=== PATIENT | male | born 1980 | race American Indian/Alaskan Native ===

== ENCOUNTER 2021-04-16 05:23 | Emergency (ER) | payer MEDICAID ==
[2021-04-16] MEDS ORDERED: HYDROmorphone 1 MG/1 ML INJ IM ONE (06:36)
[2021-04-16] MEDS ORDERED: KETOROLAC 30 MG/1 ML INJ IM ONE (06:36)
--- NOTE | 2021-04-16 06:36 | Emergency Department Report ---
ED General Adult HPI - General Chief complaint: Earache Stated complaint: JAW/GUM PAIN/POST DENTAL PROCEDURE PUI?: No Time Seen by Provider: 04/16/21 06:11 Source: patient, RN notes reviewed Mode of arrival: Ambulatory Limitations: No Limitations - History of Present Illness Initial comments: Patient is a pleasant 40-year-old gentleman with no known past medical history, who presents to the ER today with a complaint of nontraumatic left-sided upper maxillary dental pain, on tooth #15, 16. He had a filling placed a few days ago. He has throbbing pain over the aforementioned teeth, which involves his left face and jaw. He denies headache, midline neck pain, chest pain, abdominal pain, shortness of breath, Covid symptomatology. He does not have a history of high blood pressure that he is aware of. The patient denies fever, stridor, inability to speak, inability to breathe. Dental pain increases with chewing, swallowing, and exposure to heat and cold. -: Gradual, hour(s) Location: mouth Radiation: other (Left face) Severity scale (0 -10): 10 Consistency: constant Improves with: rest Worsens with: eating - Related Data Previous Rx's Medication Instructions Recorded Last Taken Type Acetaminophen [Non-Aspirin Extra 500 mg PO Q6HR PRN #30 tablet 04/16/21 Unknown Rx Strength] Ibuprofen [Motrin] 600 mg PO Q8H PRN #30 tablet 04/16/21 Unknown Rx Morphine Sulfate [Morphine Sulfate 7.5 mg PO Q6HR PRN #10 tablet 04/16/21 Unknown Rx IR] Allergies Allergy/AdvReac Type Severity Reaction Status Date / Time ciprofloxacin [From Cipro] Allergy Unknown Verified 04/16/21 05:27 ED Review of Systems ROS: Stated complaint: JAW/GUM PAIN/POST DENTAL PROCEDURE Other details as noted in HPI Constitutional: denies: fever Eyes: denies: eye discharge ENT: ear pain, dental pain. denies: throat pain, epistaxis Respiratory: denies: cough Cardiovascular: denies: chest pain Musculoskeletal: denies: back pain Neurological: denies: weakness Psychiatric: anxiety ED Past Medical Hx - Past Medical History Previous Medical History?: No - Surgical History Past Surgical History?: No - Social History Smoking Status: Never Smoker Substance Use Type: None - Medications Home Medications: Home Medications Medication Instructions Recorded Confirmed Last Taken Type Acetaminophen [Non-Aspirin Extra 500 mg PO Q6HR PRN #30 tablet 04/16/21 Unknown Rx Strength] Ibuprofen [Motrin] 600 mg PO Q8H PRN #30 tablet 04/16/21 Unknown Rx Morphine Sulfate [Morphine Sulfate 7.5 mg PO Q6HR PRN #10 tablet 04/16/21 Unknown Rx IR] ED Physical Exam - General Limitations: No Limitations General appearance: alert, anxious, obese - Head Head exam: Present: atraumatic, normocephalic - Eye Eye exam: Present: normal appearance, EOMI. Absent: nystagmus - ENT ENT exam: Present: normal exam (The trachea is midline. The neck is supple and soft.), normal orophraynx, mucous membranes moist, TM's normal bilaterally, normal external ear exam, other (There is no stridor, there is no trismus, there is no dysphonia. There is no gingival abscess, or periapical abscess. Tooth #16 is tender to percussion.) - Neck Neck exam: Present: normal inspection, full ROM. Absent: tenderness, meningismus - Respiratory Respiratory exam: Present: normal lung sounds bilaterally. Absent: respiratory distress, wheezes, rales, rhonchi, stridor, decreased breath sounds - Cardiovascular Cardiovascular Exam: Present: regular rate, normal rhythm, normal heart sounds. Absent: bradycardia, tachycardia, irregular rhythm, systolic murmur, diastolic murmur, rubs, gallop - GI/Abdominal GI/Abdominal exam: Present: soft. Absent: distended, tenderness, guarding, rebound, rigid, pulsatile mass - Rectal Rectal exam: Present: deferred - Extremities Exam Extremities exam: Present: normal inspection, full ROM, other (2+ pulses noted in the bilateral upper and lower extremities. There is no palpable cord. negative Homans sign. Muscular compartments are soft. The pelvis is stable.). Absent: pedal edema, calf tenderness - Back Exam Back exam: Present: normal inspection, full ROM. Absent: tenderness, CVA tenderness (R), CVA tenderness (L), paraspinal tenderness, vertebral tenderness - Neurological Exam Neurological exam: Present: alert, oriented X3, normal gait, other (No facial droop. Tongue midline. Extraocular movements intact bilaterally. Facial sensation intact to light touch in V1, V2, V3 distribution bilaterally. 5 and a 5 strength in 4 extremities. Sensation intact to light touch in 4 extremities.). Absent: motor sensory deficit - Psychiatric Psychiatric exam: Present: anxious - Skin Skin exam: Present: warm, dry, intact, normal color. Absent: rash ED Course Vital Signs 04/16/21 04/16/21 04/16/21 05:30 05:32 05:41 Temperature 99.0 F Pulse Rate 90 81 Respiratory 20 18 Rate Blood Pressure 209/125 Blood Pressure 166/93 [Right] O2 Sat by Pulse 97 99 Oximetry 04/16/21 04/16/21 06:00 06:30 Temperature Pulse Rate Respiratory Rate Blood Pressure 166/93 154/83 Blood Pressure [Right] O2 Sat by Pulse 97 99 Oximetry ED Medical Decision Making - Lab Data Vital Signs 04/16/21 04/16/21 04/16/21 05:30 05:32 05:41 Temperature 99.0 F Pulse Rate 90 81 Respiratory 20 18 Rate Blood Pressure 209/125 Blood Pressure 166/93 [Right] O2 Sat by Pulse 97 99 Oximetry - Medical Decision Making Differential diagnosis, including but not limited to: Dentalgia, post dental filling pain, elevated blood pressure, encounter for medical screening examination Assessment and plan: 40-year-old gentleman, who presents with dentalgia and dental pain, after having a filling placed in tooth #15/16. He is afebrile with reassuring vital signs, with exception of elevated blood pressure, which has improved. The patient states he does not have a history of high blood pressure. I suspect his elevated blood pressure secondary to pain. The patient is not acutely decompensated otherwise, and denies systemic medical complaints. Please reference the [employer] clinical policy on asymptomatic hypertension/elevated blood pressure. The patient has no stridor, dysphonia, he has no elevation of the base of the tongue, he is protecting his airway, the neck is supple and soft, and the trachea is midline. He will be treated acutely with pain medication, and he states he will follow-up with his dentist later on today. He states he will follow up with his primary care doctor for his elevated blood pressure. He has articulated understanding to the discharge instructions. All questions answered. Return precautions are reviewed. Critical care attestation.: If time is entered above; I have spent that time in minutes in the direct care of this critically ill patient, excluding procedure time. ED Disposition Clinical Impression: Dentalgia, Elevated blood pressure reading Disposition: DC-01 TO HOME OR SELFCARE Is pt being admited?: No Does the pt Need Aspirin: No Condition: Stable Additional Instructions: Please take the pain medication as needed and directed. If taking the morphine sulfate for pain, do not drive, consume alcohol, make important decisions. Also, do not operate motor vehicles. Please follow-up with your dentist as soon as possible. Please follow-up with your primary care doctor within the next month for blood pressure recheck. Patient was found to have elevated blood pressure while here in the emergency room, but this is likely secondary to pain, likely secondary to acute dentalgia. Advance diet as tolerated, and please return to the emergency room right away with new pain, worsened pain, migration of pain, inability to speak, inability to breathe, new, worsened or different symptoms not present on the initial emergency room evaluation. Prescriptions: Morphine Sulfate [Morphine Sulfate IR] 7.5 mg PO Q6HR PRN #10 tablet PRN Reason: Pain , Severe (7-10) Ibuprofen [Motrin] 600 mg PO Q8H PRN #30 tablet PRN Reason: Pain Acetaminophen [Non-Aspirin Extra Strength] 500 mg PO Q6HR PRN #30 tablet PRN Reason: Pain , Severe (7-10) Referrals: [facility] [Outside] - 3-5 Days [facility] [Provider Group] - 3-5 Days
[2021-04-16 06:51] VITALS: BP 154/83
[2021-04-16] MEDS ORDERED: propofoL 200 MG/20 ML VIAL IV ONE (12:36)
[2021-04-16] MEDS ORDERED: PHENYLEPHRINE 10 MG/1 ML INJ SDV ONE (12:50)
== END 2021-04-16 06:49 | disposition home or self-care (01) ==
LOC: ED 05:23
DX: K08.89 Other specified disorders of teeth and supporting structures (principal); R03.0 Elevated blood-pressure reading, without diagnosis of hypertension; Z79.1 Long term (current) use of non-steroidal anti-inflammatories (NSAID); Z79.899 Other long term (current) drug therapy; Z88.8 Allergy status to other drugs, medicaments and biological substances
CPT/HCPCS: 96372; 99282; J1170; J1885; J2370; J2704

== ENCOUNTER 2021-05-13 05:02 | Emergency (ER) | payer MEDICAID ==
[2021-05-13] MEDS ORDERED: PENICILLIN G BENZATHINE 1.2 MILLION UNIT/2 ML INJ IM ONE (09:11)
[2021-05-13] MEDS ORDERED: HYDROcodone/ACETAMINOPHEN 5-325 MG TAB PO ONE (09:12)
[2021-05-13] MEDS ORDERED: IBUPROFEN 800 MG TAB PO ONE (09:12)
--- NOTE | 2021-05-13 09:14 | Emergency Department Report ---
ED ENT HPI - General Chief complaint: Dental/Oral Stated complaint: PAIN IN JAW FACE TOOTH Time Seen by Provider: 05/13/21 09:02 Source: patient Mode of arrival: Ambulatory Limitations: No Limitations - History of Present Illness Initial comments: 41 YO AA COMES TO ER WITH DENTAL PAIN OF TOOTH NO 17. HAS DMD APPNT BUT THE PAIN WAS SO SEVER HE CAME TO ER. TOOK [employer]. NO TRIMSUS. NO ABSCESS. TAKING PO WO DIFFICULTY NO HX HTN NON ILL APPEARING ON ARRIVAL TO [facility] MD complaint: tooth pain -: Gradual, week(s) Severity: moderate Quality: aching Consistency: constant Improves with: none Worsens with: none Associated Symptoms: toothache. denies: fever, cough, gum swelling, pain with swallowing, sore throat, tinnitus, hearing loss, discharge from ear, rhinorrhea - Related Data Previous Rx's Medication Instructions Recorded Last Taken Type Amoxicillin [Trimox CAP] 500 mg PO Q8H #30 capsule 05/13/21 Unknown Rx Ibuprofen [Motrin] 800 mg PO Q8HR PRN #30 tablet 05/13/21 Unknown Rx Allergies Allergy/AdvReac Type Severity Reaction Status Date / Time ciprofloxacin [From Cipro] Allergy Unknown Verified 04/16/21 05:27 ED Dental HPI - General Chief complaint: Dental/Oral Stated complaint: PAIN IN JAW FACE TOOTH Time Seen by Provider: 05/13/21 09:02 Source: patient Mode of arrival: Ambulatory Limitations: No Limitations - Related Data Previous Rx's Medication Instructions Recorded Last Taken Type Amoxicillin [Trimox CAP] 500 mg PO Q8H #30 capsule 05/13/21 Unknown Rx Ibuprofen [Motrin] 800 mg PO Q8HR PRN #30 tablet 05/13/21 Unknown Rx Allergies Allergy/AdvReac Type Severity Reaction Status Date / Time ciprofloxacin [From Cipro] Allergy Unknown Verified 04/16/21 05:27 ED Review of Systems ROS: Stated complaint: PAIN IN JAW FACE TOOTH Other details as noted in HPI Comment: All other systems reviewed and negative ED Past Medical Hx - Past Medical History Previous Medical History?: No - Surgical History Past Surgical History?: No - Family History Family history: no significant - Social History Smoking Status: Never Smoker Substance Use Type: None - Medications Home Medications: Home Medications Medication Instructions Recorded Confirmed Last Taken Type Amoxicillin [Trimox CAP] 500 mg PO Q8H #30 capsule 05/13/21 Unknown Rx Ibuprofen [Motrin] 800 mg PO Q8HR PRN #30 tablet 05/13/21 Unknown Rx ED Physical Exam - General Limitations: No Limitations General appearance: alert, in no apparent distress - Head Head exam: Present: atraumatic, normocephalic - Eye Eye exam: Present: normal appearance - ENT ENT exam: Present: mucous membranes moist - Expanded ENT Exam Expanded Mouth exam: Present: normal external inspection Teeth exam: Present: dental caries 1 - Other (caries) - Neck Neck exam: Present: normal inspection - Respiratory Respiratory exam: Present: normal lung sounds bilaterally. Absent: respiratory distress - Cardiovascular Cardiovascular Exam: Present: regular rate, normal rhythm. Absent: systolic murmur, diastolic murmur, rubs, gallop - GI/Abdominal GI/Abdominal exam: Present: soft, normal bowel sounds - Rectal Rectal exam: Present: deferred - Extremities Exam Extremities exam: Present: normal inspection - Back Exam Back exam: Present: normal inspection - Neurological Exam Neurological exam: Present: alert, oriented X3 - Psychiatric Psychiatric exam: Present: normal affect, normal mood - Skin Skin exam: Present: warm, dry, intact, normal color. Absent: rash ED Course Vital Signs 05/13/21 05/13/21 05/13/21 07:03 09:33 09:57 Temperature 99.4 F 99.1 F Pulse Rate 95 H 87 91 H Respiratory 20 18 19 Rate Blood Pressure 138/84 Blood Pressure 196/139 169/99 [Right] O2 Sat by Pulse 95 94 99 Oximetry ED Medical Decision Making - Medical Decision Making medicated for pain and with pcn for dental caries has dental appnt at [facility] NO TRISMUS OR ABSCESS TAKING PO GIVEN IM PCN AND MEDICATED FOR PAIN DC HOME WITH DMD FOLLOW UP SCHEDULED; HE KNOWS THIS IS TEMPORARY SOLUTION HE HAS BEEN INSTRUCTED TO MONITOR BP I'VE GIVEN HIM REFERRAL TO PCP SHOULD IT REMAIN ELEVATED HE HAS NO HISTORY OF HTN HE HAS NO CP OR SOB NO SWELLING OF EXTREMITIES NO HEADACHE AND HE IS NEURO INTACT Vital Signs 05/13/21 07:03 Temperature 99.4 F Pulse Rate 95 H Respiratory 20 Rate Blood Pressure 196/139 [Right] O2 Sat by Pulse 95 Oximetry Patient being discharged home with discharge plan of care. Patient verbalizes understanding of his plan. He realizes that he needs to see his dentist for definitive care. He also understands that he needs to follow-up with a primary care to make sure that this blood pressure is transient. On discharge patient has no chest pain or shortness of breath. - Differential Diagnosis dental pain Critical care attestation.: If time is entered above; I have spent that time in minutes in the direct care of this critically ill patient, excluding procedure time. ED Disposition Clinical Impression: Dental caries, Elevated blood pressure reading Disposition: TO HOME OR SELFCARE Is pt being admited?: No Does the pt Need Aspirin: No Condition: Stable Additional Instructions: follow up with dentist as we discussed what we did today is a temporary fix only monitor your bp as we discussed it may be elevated today because of pain but you need to monitor and see pcp if it remains elevated referral to pcp below Prescriptions: Ibuprofen [Motrin] 800 mg PO Q8HR PRN #30 tablet PRN Reason: Pain, Moderate (4-6) Amoxicillin [Trimox CAP] 500 mg PO Q8H #30 capsule Referrals: KLEVER MCKINLEY MD [Staff Physician] - 3-5 Days Time of Disposition: 09:12
[2021-05-13 09:59] VITALS: BP 169/99
== END 2021-05-13 09:59 | disposition home or self-care (01) ==
LOC: ED 05:02
DX: K02.9 Dental caries, unspecified (principal); R03.0 Elevated blood-pressure reading, without diagnosis of hypertension; Z79.899 Other long term (current) drug therapy; Z88.8 Allergy status to other drugs, medicaments and biological substances
CPT/HCPCS: 96372; 99282; J0561

== ENCOUNTER 2021-07-24 11:54 | Emergency (ER) | payer MEDICAID ==
[2021-07-24 12:11] VITALS: BP 146/80
--- NOTE | 2021-07-24 12:55 | XRay Report ---
CHEST 2 VIEWS INDICATION / CLINICAL INFORMATION: shortness of breath. COMPARISON: None available. FINDINGS: SUPPORT DEVICES: None. HEART / MEDIASTINUM: No significant abnormality. LUNGS / PLEURA: No significant pulmonary abnormality. No significant pleural effusion. No pneumothora x. ADDITIONAL FINDINGS: No significant additional findings. IMPRESSION: 1. No acute abnormality of the chest. Signer Name: Marc Conteh MD Signed: 07/24/2021 12:51 PM Workstation Name: [id number]
--- NOTE | 2021-07-24 13:04 | Emergency Department Report ---
ED General Adult HPI - General Chief complaint: Dyspnea/Respdistress Stated complaint: SOB NAUSEA, SWEATING Time Seen by Provider: 07/24/21 12:36 Source: patient Mode of arrival: Ambulatory Limitations: No Limitations - History of Present Illness Initial comments: 41-year-old male presents to ED for evaluation. Patient states his symptoms began 1 month ago. 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 States every time he enters the facility he begins coughing, sweating, becomes nauseated, dizzy, and experiences shortness of breath. Patient states he saw his PCP for same a couple weeks ago. States he was given 2 weeks off for an upper respiratory infection. Patient states he went to work today and had to leave because he was experiencing the symptoms. Patient denies this smelling any sort of chemical in the building. He denies any history of anxiety. Patient states his symptoms only occur at work. He denies any symptoms at this time. -: month(s) (1) Consistency: intermittent, now resolved Improves with: none Worsens with: other (Going to work) Associated Symptoms: cough, nausea/vomiting, shortness of breath. denies: chest pain Treatments Prior to Arrival: none - Related Data Previous Rx's Medication Instructions Recorded Last Taken Type Amoxicillin [Trimox CAP] 500 mg PO Q8H #30 capsule 05/13/21 Unknown Rx Ibuprofen [Motrin] 800 mg PO Q8HR PRN #30 tablet 05/13/21 Unknown Rx Allergies Allergy/AdvReac Type Severity Reaction Status Date / Time ciprofloxacin [From Cipro] Allergy Unknown Verified 04/16/21 05:27 ED Review of Systems ROS: Stated complaint: SOB NAUSEA, SWEATING Other details as noted in HPI Comment: All other systems reviewed and negative Constitutional: denies: fever Respiratory: cough, shortness of breath Cardiovascular: denies: chest pain Gastrointestinal: nausea ED Past Medical Hx - Past Medical History Previous Medical History?: No - Surgical History Past Surgical History?: No - Social History Smoking Status: Never Smoker Substance Use Type: None - Medications Home Medications: Home Medications Medication Instructions Recorded Confirmed Last Taken Type Amoxicillin [Trimox CAP] 500 mg PO Q8H #30 capsule 05/13/21 Unknown Rx Ibuprofen [Motrin] 800 mg PO Q8HR PRN #30 tablet 05/13/21 Unknown Rx ED Physical Exam - General Limitations: No Limitations General appearance: alert, in no apparent distress - Head Head exam: Present: atraumatic, normocephalic - Eye Eye exam: Present: normal appearance, EOMI - ENT ENT exam: Present: mucous membranes moist - Neck Neck exam: Present: normal inspection - Respiratory Respiratory exam: Present: normal lung sounds bilaterally. Absent: respiratory distress - Cardiovascular Cardiovascular Exam: Present: regular rate, normal rhythm - GI/Abdominal GI/Abdominal exam: Present: soft. Absent: distended, tenderness - Extremities Exam Extremities exam: Present: normal inspection - Neurological Exam Neurological exam: Present: alert, oriented X3, CN II-XII intact. Absent: motor sensory deficit - Psychiatric Psychiatric exam: Present: normal affect, normal mood - Skin Skin exam: Present: warm, dry, intact, normal color ED Course Vital Signs 07/24/21 12:01 Temperature 98.6 F Pulse Rate 97 H Respiratory 16 Rate Blood Pressure 146/80 [Left] O2 Sat by Pulse 97 Oximetry ED Medical Decision Making - Radiology Data Radiology results: report reviewed, image reviewed - Medical Decision Making 41-year-old male presents to ED with 1 month history of coughing, sweating, nausea, dizziness, shortness of breath only at work. Patient works in a correctional facility. Patient reports he does not experience the symptoms outside of work. Patient states his PCP gave him 2 weeks off for an upper respiratory infection. Patient is currently back at work and now experiencing same symptoms again. Patient does express that he is stressed and does not really enjoy his job. Unclear if this may possibly be anxiety reaction. Chest x-ray is normal. Vital signs are normal. Exam is unremarkable. Patient will be discharged at this time. Outpatient follow-up with PCP advised, return precautions given. - Differential Diagnosis Pneumonia, anxiety, asthma Critical care attestation.: If time is entered above; I have spent that time in minutes in the direct care of this critically ill patient, excluding procedure time. ED Disposition Clinical Impression: Dyspnea Disposition: HOME / SELF CARE / HOMELESS Is pt being admited?: No Condition: Stable Instructions: Shortness of Breath, Adult, [id number], Panic Attack, [id number] Referrals: PRIMARY CARE, [Referring] - 3-5 Days Forms: Work/School Release Form(ED)
== END 2021-07-24 14:07 | disposition home or self-care (01) ==
LOC: ED 11:54
DX: R06.00 Dyspnea, unspecified (principal); Z88.1 Allergy status to other antibiotic agents
CPT/HCPCS: 71046; 99283